=== PATIENT | male | born 1970 | race American Indian/Alaskan Native ===

== ENCOUNTER 2020-09-23 10:08 | Emergency (ER) | payer SELFPAY ==
[2020-09-23 10:41] VITALS: BP 131/83
--- NOTE | 2020-09-23 11:00 | Emergency Department Report ---
ED ENT HPI - General Chief complaint: Dental/Oral Stated complaint: MOUTH PAIN Time Seen by Provider: 09/23/20 10:56 Source: patient Mode of arrival: Ambulatory Limitations: No Limitations - History of Present Illness Initial comments: Patient is a 50-year-old male who presents emergency room with complaints of a "dental abscess" which he reports began 3 days ago. He states intermittently he has had pain to the right upper tooth for about 3 months. He states in the last 3 days his face began to swell. He states last night he believes he had a sub jective fever but denies any fever today. He states he has not seen a dentist in 3 years. He denies any vomiting, difficulty swallowing, shortness of breath, diarrhea. He is tolerating p.o. intake without difficulty. He denies any past medical history. He denies any allergies to medications. - Related Data Previous Rx's Medication Instructions Recorded Last Taken Type Clindamycin [Clindamycin CAP] 450 mg PO TID 7 Days #63 capsule 09/23/20 Unknown Rx Ibuprofen [Motrin 600 MG tab] 600 mg PO Q8H PRN #14 tablet 09/23/20 Unknown Rx Allergies Allergy/AdvReac Type Severity Reaction Status Date / Time No Known Allergies Allergy Unverified 09/23/20 10:40 ED Dental HPI - General Chief complaint: Dental/Oral Stated complaint: MOUTH PAIN Time Seen by Provider: 09/23/20 10:56 Source: patient Mode of arrival: Ambulatory Limitations: No Limitations - Related Data Previous Rx's Medication Instructions Recorded Last Taken Type Clindamycin [Clindamycin CAP] 450 mg PO TID 7 Days #63 capsule 09/23/20 Unknown Rx Ibuprofen [Motrin 600 MG tab] 600 mg PO Q8H PRN #14 tablet 09/23/20 Unknown Rx Allergies Allergy/AdvReac Type Severity Reaction Status Date / Time No Known Allergies Allergy Unverified 09/23/20 10:40 ED Review of Systems ROS: Stated complaint: MOUTH PAIN Other details as noted in HPI Comment: All other systems reviewed and negative ED Past Medical Hx - Past Medical History Previous Medical History?: No - Surgical History Past Surgical History?: No - Medications Home Medications: Home Medications Medication Instructions Recorded Confirmed Last Taken Type Clindamycin [Clindamycin CAP] 450 mg PO TID 7 Days #63 capsule 12/07/20 Unknown Rx Ibuprofen [Motrin 600 MG tab] 600 mg PO Q8H PRN #14 tablet 09/23/20 Unknown Rx ED Physical Exam - General Limitations: No Limitations General appearance: alert, in no apparent distress - Head Head exam: Present: atraumatic, normocephalic - Eye Eye exam: Present: normal appearance - ENT ENT exam: Present: normal orophraynx, mucous membranes moist, other (multiple fillings present in the teeth, there is a missing tooth with partial pieces left remaining to the right upper back molar, there is edema and induration of the adjacent gumline and cheek, there is mild edema present to the right maxillary region, uvula is midline, no uvular edema or deviation, no trismus, no tongue elevation, no submandibular edema, no muffled voice) - Respiratory Respiratory exam: Present: normal lung sounds bilaterally. Absent: respiratory distress, wheezes, rales, rhonchi, stridor, chest wall tenderness, accessory muscle use, decreased breath sounds, prolonged expiratory - Cardiovascular Cardiovascular Exam: Present: regular rate, normal rhythm, normal heart sounds. Absent: systolic murmur, diastolic murmur, rubs, gallop - Neurological Exam Neurological exam: Present: alert, oriented X3 - Psychiatric Psychiatric exam: Present: normal affect, normal mood - Skin Skin exam: Present: warm, dry, intact ED Course Vital Signs 09/23/20 10:40 Temperature 97.9 F Pulse Rate 66 Respiratory 18 Rate Blood Pressure 131/83 [Right] O2 Sat by Pulse 100 Oximetry ED Medical Decision Making - Medical Decision Making Patient is a 50-year-old male who presents emergency room with complaints of a "dental abscess" which he reports began 3 days ago. He states intermittently he has had pain to the right upper tooth for about 3 months. He states in the last 3 days his face began to swell. He states last night he believes he had a subjective fever but denies any fever today. He states he has not seen a dentist in 3 years. He denies any vomiting, difficulty swallowing, shortness of breath, diarrhea. He is tolerating p.o. intake without difficulty. He denies any past medical history. He denies any allergies to medications. Vitals are stable. On exam:multiple fillings present in the teeth, there is a missing tooth with partial pieces left remaining to the right upper back molar, there is edema and induration of the adjacent gumline and cheek, there is mild edema present to the right maxillary region, uvula is midline, no uvular edema or deviation, no trismus, no tongue elevation, no submandibular edema, no muffled voice. Examination appears consistent with dental abscess and dental caries, no signs of significant facial abscess or Ludwigs at this time. Patient given prescription for clindamycin and ibuprofen. Advised patient Please take medication as prescribed. Gargle with warm salt water 3 times a day. Increase your water intake. Follow-up with a dentist. It is very important that you follow-up with a dentist. Return to emergency room for any new or worsening symptoms. Critical care attestation.: If time is entered above; I have spent that time in minutes in the direct care of this critically ill patient, excluding procedure time. ED Disposition Clinical Impression: Dental abscess, Dental caries Disposition: TO HOME OR SELFCARE Is pt being admited?: No Does the pt Need Aspirin: No Condition: Stable Instructions: Dental Abscess, [id number] Additional Instructions: Please take medication as prescribed. Gargle with warm salt water 3 times a day. Increase your water intake. Follow-up with a dentist. It is very important that you follow-up with a dentist. Return to emergency room for any new or worsening symptoms. Prescriptions: Clindamycin [Clindamycin CAP] 450 mg PO TID 7 Days #63 capsule Ibuprofen [Motrin 600 MG tab] 600 mg PO Q8H PRN #14 tablet PRN Reason: Pain Referrals: [facility] [Outside] - 2-3 Days [facility] [Outside] - 2-3 Days Time of Disposition: 10:59 Print Language: MARTINIQUAIS
== END 2020-09-23 11:14 | disposition home or self-care (01) ==
LOC: ED 10:08
DX: K04.7 Periapical abscess without sinus (principal); K02.9 Dental caries, unspecified
CPT/HCPCS: 99281